=== PATIENT | female | born 1950 | race Caucasian/White ===

== ENCOUNTER 2018-12-26 12:19 | Outpatient (CLI) | payer BC ==
--- NOTE | 2018-12-26 15:19 | MRI ---
MRI LUMBAR SPINE WITHOUT CONTRAST: Multiplanar, multisequential imaging of the lumbar spine obtained. INDICATION: Osteoarthritis of the lumbar spine. Low back pain. FINDINGS: Lumbar vertebrae maintain height. Degenerative disk changes are seen at multiple levels. Loss of di sk space is noted at L1-2 and at L5-S1. There is a posterior listhesis at L1-2. There is a herniate d disk at L1-2 paracentrally on the right extending laterally on the right. There is extruded disk f ragment at this level with inferior migration extending along the inferior aspect of the L2 vertebra on the right compressing the anterior thecal sac on the right. Small extruded fragment measures 7 mm AP dimension in the axial plane inferior to the L1-2 disk space. Mild central canal stenosis at the disk level. There is associated facet hypertrophy and arthrosis. At L2-3, broad-based disk bulge flattens the thecal sac. Facet hypertrophy. Mild central canal sten osis. At L3-4, mild disk bulge. Facet hypertrophy. Mild central canal stenosis. At L4-5, mild anterolisthesis. Diffuse disk bulge. Prominent facet and ligamentous hypertrophy. Mo derate central canal stenosis. At L5-S1, degenerative disk change. Mild diffuse disk bulge. No significant central canal stenosis. There is a disk-osteophyte complex projecting to the left encroaching into the left foramina and co ntacting the lateral left L5 nerve root. IMPRESSION: 1. At L1-2, there is a mild posterior listhesis with disk protrusion on the right encroaching into t he foramina and compressing the anterior thecal sac on the right. There is an extruded disk fragment extending with inferior migration at this level with fragment seen in the anterior spinal canal on t he right extending inferior to the disk space compressing the anterior thecal sac. 2. Mild to moderate central canal stenosis at L2-3, L3-4, and L4-5 with each level described above. POS: JAVIER
== END 2018-12-26 12:20 | disposition home or self-care (01) ==
LOC: TBSIIMAG 12:19 → MRI 12:20
PROVIDERS: ATTEND Orthopaedic Surgery
DX: M47.816 Spondylosis without myelopathy or radiculopathy, lumbar region (principal); M43.16 Spondylolisthesis, lumbar region; M51.26 Other intervertebral disc displacement, lumbar region; M48.061 Spinal stenosis, lumbar region without neurogenic claudication
CPT/HCPCS: 72148

== ENCOUNTER 2022-06-18 10:02 | Outpatient (CLI) | payer BC | END 2022-06-18 10:03 | disposition home or self-care (01) | LOC: RAD 10:02 | PROVIDERS: ATTEND Nurse Practitioner Family | DX: R06.02 Shortness of breath (principal); K44.9 Diaphragmatic hernia without obstruction or gangrene | CPT/HCPCS: 71046 ==

== ENCOUNTER 2022-08-26 07:57 | Outpatient (CLI) | payer BC | END 2022-08-26 07:58 | disposition home or self-care (01) | LOC: EDBD → BICMAMMO 07:57 | PROVIDERS: ATTEND Family Medicine | DX: Z12.31 Encounter for screening mammogram for malignant neoplasm of breast (principal); Z13.820 Encounter for screening for osteoporosis; M85.89 Other specified disorders of bone density and structure, multiple sites; Z78.0 Asymptomatic menopausal state; Z85.828 Personal history of other malignant neoplasm of skin | CPT/HCPCS: 77063; 77067; 77080 ==

== ENCOUNTER 2023-09-16 08:57 | Outpatient (CLI) | payer BC | END 2023-09-16 08:58 | disposition home or self-care (01) | LOC: BICMAMMO 08:57 | PROVIDERS: ATTEND Family Medicine | DX: Z12.31 Encounter for screening mammogram for malignant neoplasm of breast (principal); Z85.828 Personal history of other malignant neoplasm of skin | CPT/HCPCS: 77063; 77067 ==

== ENCOUNTER 2023-09-17 08:22 | Outpatient (CLI) | payer BC | END 2023-09-17 08:23 | disposition home or self-care (01) | LOC: RAD 08:22 | PROVIDERS: ATTEND Surgery | DX: K44.9 Diaphragmatic hernia without obstruction or gangrene (principal); K21.9 Gastro-esophageal reflux disease without esophagitis | CPT/HCPCS: 74220 ==

== ENCOUNTER 2023-09-29 07:05 | Day surgery (SDC) | payer BC ==
[2023-09-28 09:47] VITALS: BMI 23.6
[2023-09-29] MEDS ORDERED: Rocuronium Bromide 10 MG/ML (10ML VIAL) ONE ×2 (08:06→09:50)
[2023-09-29] MEDS ORDERED: fentaNYL PF 100 MCG/2 ML SYRINGE ONE ×2 (08:06→11:51)
[2023-09-29] MEDS ORDERED: Lidocaine 1% PF 5 ML VIAL ONE ×2 (08:06→09:50)
[2023-09-29] MEDS ORDERED: PROPOFOL 20 ML ONE (08:06)
[2023-09-29] MEDS ORDERED: EPINEPHrine 1 MG/ML VIAL ONE (09:26)
[2023-09-29] MEDS ORDERED: Bupivacaine 0.25% HCL 30 ML VIAL ONE (09:26)
[2023-09-29] MEDS ORDERED: CEFAZOLIN 2 GM VIAL ONE (09:36)
[2023-09-29] MEDS ORDERED: Sodium Chloride 0.9% 100 ML ONE (09:36)
[2023-09-29] MEDS ORDERED: Ondansetron PF 4 MG/2 ML Vial ONE ×2 (09:50→11:02)
[2023-09-29] MEDS ORDERED: PROPOFOL 200 MG/20 ML VIAL ONE (09:50)
[2023-09-29] MEDS ORDERED: Dexamethasone 20 MG/5 ML VIAL ONE ×2 (09:50→10:00)
[2023-09-29] MEDS ORDERED: ePHEDrine Sulfate 50 MG/10 ML VIAL ONE (10:05)
[2023-09-29] MEDS ORDERED: SUGAMMADEX SODIUM 200 MG/2 ML VIAL ONE ×2 (11:03→11:06)
[2023-09-29] MEDS ORDERED: HYDROcodone/Acetaminophen 5/325 mg Tablet ONE (13:15)
== END 2023-09-29 13:58 | disposition home or self-care (01) ==
LOC: SDC 07:05
PROVIDERS: ATTEND Surgery
PROC: 0BQT3ZZ Repair Diaphragm, Percutaneous Approach (ICD-10-PCS; principal; 2023-09-29)
DX: K44.9 Diaphragmatic hernia without obstruction or gangrene (principal); K21.9 Gastro-esophageal reflux disease without esophagitis; E78.5 Hyperlipidemia, unspecified; F10.90 Alcohol use, unspecified, uncomplicated; Z88.0 Allergy status to penicillin; Z88.8 Allergy status to other drugs, medicaments and biological substances; Z90.49 Acquired absence of other specified parts of digestive tract; Z90.89 Acquired absence of other organs; Z90.710 Acquired absence of both cervix and uterus; Z79.899 Other long term (current) drug therapy
CPT/HCPCS: J0171; J1100; J2405; J2704; J3490; S0020

== ENCOUNTER 2024-10-05 09:17 | Outpatient (CLI) | payer BC | END 2024-10-05 09:18 | disposition home or self-care (01) | LOC: BICMAMMO 09:17 | PROVIDERS: ATTEND Family Medicine | DX: Z12.31 Encounter for screening mammogram for malignant neoplasm of breast (principal); Z78.0 Asymptomatic menopausal state; M85.89 Other specified disorders of bone density and structure, multiple sites; Z85.828 Personal history of other malignant neoplasm of skin | CPT/HCPCS: 77063; 77067; 77080 ==